=== PATIENT | female | born 1970 | race Caucasian/White ===

== ENCOUNTER 2017-11-12 14:57 | Outpatient (CLI) | payer BC | END 2017-11-12 15:00 | disposition home or self-care (01) | LOC: D.MAMMO 14:57 | DX: Z12.31 Encounter for screening mammogram for malignant neoplasm of breast (principal) ==

== ENCOUNTER → 2017-11-18 13:33 | Outpatient (CLI) | payer BC | END | disposition home or self-care (01) | LOC: D.MRI 13:30 | DX: M54.16 Radiculopathy, lumbar region (principal) ==

== ENCOUNTER → 2017-12-09 20:52 | Outpatient (CLI) | payer BC | END | disposition home or self-care (01) | LOC: D.MAMMO 12:00 | DX: R92.8 Other abnormal and inconclusive findings on diagnostic imaging of breast (principal) ==

== ENCOUNTER → 2020-10-22 09:30 | Outpatient (CLI) | payer BC | END | disposition home or self-care (01) | LOC: D.MAMMO 09:30 | PROVIDERS: ATTEND Family Medicine | DX: Z12.31 Encounter for screening mammogram for malignant neoplasm of breast (principal) ==